=== PATIENT | male | born 1965 | race Caucasian/White ===

== ENCOUNTER → 2016-11-04 | Outpatient (CLI) | payer BC ==
[~2016-11-04] MED LIST: EXCETAB80 PO; FENU610C PO
--- NOTE | 2016-11-08 09:15 | SLEEPCENT ---
DATE OF PROCEDURE: 11/04/2016 ORDERED BY: REGINE Medeiros Nocturnal polysomnography was performed for the titration of pressure therapy in this patient with obstructive sleep apnea syndrome based on clinical findings and confirmed by home testing revealing a respiratory event index of 29. For testing, the patient was fit with a [employer]Med Quattro full face mask of medium size. 5 cm of water pressure were applied to the circuit and the lights were extinguished. 8 hours and 34 minutes of data were reviewed. There were 447 minutes of sleep identified. Sleep latency was normal at 13 minutes. Rapid eye movement (REM) latency was short at 67 minutes. Sleep architecture improved with optimal pressure therapy. There were 6 REM periods appreciated. Overall sleep efficiency was 87.7%. The patient's electrocardiogram (EKG) showed a sinus rhythm with an average heart rate of 60 beats per minute. Electroencephalogram (EEG) showed normal waveforms for awake and sleep stages. Respiratory events were found best palliated with CPAP at pressure of +9. CPAP tolerance was good. Some limb activity was seen early in the study, less so with optimal pressure therapy. Limb movement arousal index was 7. IMPRESSION: Obstructive sleep apnea syndrome (G47.33). RECOMMENDATION: Nightly use of pressure therapy 9 cm of water.
== END ==
LOC: M SLEEP 19:37
PROVIDERS: ATTEND Nurse Practitioner Adult Health
DX: G47.33 Obstructive sleep apnea (adult) (pediatric) (principal)

== ENCOUNTER → 2017-01-31 | Outpatient (REF) | payer BC | LOC: M LAB REF 12:38 | PROVIDERS: ATTEND Family Medicine | DX: M10.9 Gout, unspecified (principal) ==

== ENCOUNTER → 2017-06-25 | Outpatient (CLI) | payer BC ==
--- NOTE | 2017-06-25 13:58 | REP ---
LEFT KNEE, FIVE VIEWS: HISTORY: Pain. There is no acute fracture or dislocation. The joint spaces are normal in appearance. An osteophyte is present on the inferior patella. IMPRESSION: There is no acute fracture or dislocation. Signed by Ranjan Conley MD 06/25/2017 02:05 P
== END ==
LOC: M LRY 11:36
PROVIDERS: ATTEND Physician Assistant
DX: M25.562 Pain in left knee (principal)

== ENCOUNTER → 2017-08-24 | Outpatient (REF) | payer BC ==
[2017-08-24 11:32] LABS: URIC ACID 4.9 MG/DL (3.5-7.2)
== END ==
LOC: M LAB REF 10:30
DX: M10.9 Gout, unspecified (principal)
CPT/HCPCS: 84550

== ENCOUNTER → 2018-02-20 | Outpatient (REF) | payer BC ==
[2018-02-20 13:54] LABS: URIC ACID 6.2 MG/DL (3.5-7.2)
== END ==
LOC: M LAB REF 13:35
DX: M10.9 Gout, unspecified (principal)
CPT/HCPCS: 84550

== ENCOUNTER → 2021-01-25 | Outpatient (CLI) | payer BC ==
[~2021-01-25] MED LIST changes: +ZYLO300T6 PO
== END ==
LOC: M LABSMTC 13:54
PROVIDERS: ATTEND Anesthesiology
DX: Z01.812 Encounter for preprocedural laboratory examination (principal); Z20.822 Contact with and (suspected) exposure to COVID-19

== ENCOUNTER 2021-01-28 06:45 | Day surgery (SDC) | payer BC ==
[~2021-01-28] VITALS: Ht 172.7 cm; Wt 106.1 kg
[~2021-01-28 06:45] MED LIST changes: +NS 1,000 ML IV ONE
[2021-01-28] MEDS ORDERED: propofoL 200 MG/20 ML VIAL As Ordered ONE (06:58)
--- NOTE | 2021-01-28 08:09 | ROOR ---
Patient Name: Ruy Sarmiento Procedure Date: 01/28/2021 7:54 AM Date of : 1965 Age: 55 Room: [facility] Gender: Male Note Status: Finalized Procedure: Colonoscopy Indications: High risk colon cancer surveillance: Personal history of colonic polyps Providers: James Conner Jr, MD Referring MD: Levon Valenzuela MD Requesting Provider: Medicines: Propofol per Anesthesia Complications: No immediate complications. Procedure: Pre-Anesthesia Assessment: - Prior to the procedure, a History and Physical was performed, and patient medications and allergies were reviewed. The patient is competent. The risks and benefits of the procedure and the sedation options and risks were discussed with the patient. All questions were answered and informed consent was obtained. Patient identification and proposed procedure were verified by the physician and the nurse in the pre-procedure area and in the procedure room. Mental Status Examination: alert and oriented. Airway Examination: normal oropharyngeal airway and neck mobility. Respiratory Examination: clear to auscultation. CV Examination: normal. ASA Grade Assessment: II - A patient with mild systemic disease. After reviewing the risks and benefits, the patient was deemed in satisfactory condition to undergo the procedure. The anesthesia plan was to use moderate sedation / analgesia (conscious sedation). Immediately prior to administration of medications, the patient was re-assessed for adequacy to receive sedatives. The heart rate, respiratory rate, oxygen saturations, blood pressure, adequacy of pulmonary ventilation, and response to care were monitored throughout the procedure. The physical status of the patient was re-assessed after the procedure. The Colonoscope was introduced through the anus and advanced to the cecum, identified by appendiceal orifice and ileocecal valve. The colonoscopy was performed without difficulty. The patient tolerated the procedure well. The quality of the bowel preparation was adequate. Findings: The rectum, recto-sigmoid colon, ascending colon, cecum, appendiceal orifice and ileocecal valve appeared normal. Multiple small and large-mouthed diverticula were found in the sigmoid colon and descending colon. Scattered small-mouthed diverticula were found in the transverse colon and ascending colon. Impression: - The rectum, recto-sigmoid colon, ascending colon, cecum, appendiceal orifice and ileocecal valve are normal. - Diverticulosis in the sigmoid colon and in the descending colon. - Diverticulosis in the transverse colon and in the ascending colon. - No specimens collected. Recommendation: - Discharge patient to home (ambulatory). - Repeat colonoscopy in 5 years for surveillance. Procedure Code(s): --- Professional --- 99729, Colonoscopy, flexible; diagnostic, including collection of specimen(s) by brushing or washing, when performed (separate procedure) Diagnosis Code(s): --- Professional --- Z86.010, Personal history of colonic polyps K57.30, Diverticulosis of large intestine without perforation or abscess without bleeding CPT copyright 2019 [employer]. All rights reserved. The codes documented in this report are preliminary and upon wireless technician review may be revised to meet current compliance requirements. James Conner MD James Conner Jr, MD 01/28/2021 8:09:19 AM Electronically signed by James Conner Jr, MD Number of Addenda: 0 Note Initiated On: 01/28/2021 7:54 AM Estimated Blood Loss: Estimated blood loss: none.
[2021-01-28 08:34] VITALS: BP 145/73
== END 2021-01-28 08:37 | disposition home or self-care (01) ==
LOC: M OPP 06:45
PROVIDERS: ATTEND Surgery
DX: Z12.11 Encounter for screening for malignant neoplasm of colon (principal); Z86.010 Personal history of colon polyps; K57.30 Diverticulosis of large intestine without perforation or abscess without bleeding; F17.210 Nicotine dependence, cigarettes, uncomplicated; Z79.899 Other long term (current) drug therapy; Z80.0 Family history of malignant neoplasm of digestive organs; Z91.040 Latex allergy status

== ENCOUNTER → 2021-05-04 | Outpatient (REF) | payer BC ==
[~2021-05-04] MED LIST changes: -NS 1,000 ML IV ONE
== END ==
LOC: M LAB REF 11:41
PROVIDERS: ATTEND Family Medicine
DX: M10.9 Gout, unspecified (principal)

== ENCOUNTER → 2021-06-18 | Outpatient (REF) | payer BC | LOC: M LAB REF 16:33 | PROVIDERS: ATTEND Family Medicine | DX: M10.9 Gout, unspecified (principal) ==

== ENCOUNTER → 2022-12-30 | Outpatient (REF) | payer BC | LOC: M LAB REF 12:14 | PROVIDERS: ATTEND Family Medicine | DX: M10.9 Gout, unspecified (principal) ==